=== PATIENT | male | born 1960 | race Caucasian/White ===

== ENCOUNTER 2020-08-18 14:31 | Emergency (ER) | payer BC ==
[2020-08-18 14:40] VITALS: RESP 16; TEMP 97.6
[2020-08-18] MEDS ORDERED: SODIUM CHLORIDE 0.9% 1,000 ML IV STA ×2 (15:02)
--- NOTE | 2020-08-18 15:14 | ED ---
Chest Pain HPI - General Source: patient, RN notes reviewed, old records reviewed Mode of arrival: ambulatory Limitations: no limitations <Rupinder Ladd - Last Filed: 08/18/20 16:19> <Maribell Page - Last Filed: 08/19/20 00:03> - General Chief Complaint: Chest Pain Stated Complaint: Chest Pain Time Seen by Provider: 08/18/20 14:55 - History of Present Illness Initial Comments: 60-year-old male present to return today with complete chest pain this morning with movement of his head and neck and chest wall. He states that he does do an active job. He reports that he told this to urgent care center here for further evaluation. Denies any significant shortness of breath, he is a smoker. Denies any significant history of diabetes hypertension or hyperlipidemia. Patient denies any significant complaints of headache dizziness or lightheadedness. He reports that his pain is reproducible and lifting his arms and lifting his head up.. (Rupinder Ladd) - Related Data Allergies Allergy/AdvReac Type Severity Reaction Status Date / Time peanut Allergy Rash/Hives Verified 08/18/20 14:38 Review of Systems ROS Other: All systems not noted in ROS Statement are negative. <Rupinder Ladd - Last Filed: 08/18/20 16:19> ROS Other: All systems not noted in ROS Statement are negative. <Maribell Page - Last Filed: 08/19/20 00:03> ROS Statement: Those systems with pertinent positive or pertinent negative responses have been documented in the HPI. EKG Findings - EKG Comments: EKG Findings:: EKG performed at 1447 shows sinus rhythm normal EKG. Ventricular rate of 63 bpm. Pulse 64 ms. QRS duration is 84 ms. QT QTc is 420/[address] elevation. <Rupinder Ladd - Last Filed: 08/18/20 16:19> Past Medical History Past Medical History: No Reported History History of Any Multi-Drug Resistant Organisms: None Reported Past Surgical History: Orthopedic Surgery Additional Past Surgical History / Comment(s): right ankle Past Psychological History: No Psychological Hx Reported Smoking Status: Current every day smoker Past Alcohol Use History: Occasional Past Drug Use History: None Reported <Rupinder Ladd - Last Filed: 08/18/20 16:19> General Exam Limitations: no limitations General appearance: alert, in no apparent distress Head exam: Present: atraumatic, normocephalic, normal inspection Eye exam: Present: normal appearance, PERRL, EOMI. Absent: scleral icterus, conjunctival injection, periorbital swelling ENT exam: Present: normal exam, mucous membranes moist Neck exam: Present: normal inspection. Absent: tenderness, meningismus, lymphadenopathy Respiratory exam: Present: normal lung sounds bilaterally. Absent: respiratory distress, wheezes, rales, rhonchi, stridor Cardiovascular Exam: Present: regular rate, normal rhythm, normal heart sounds, other (Tenderness over chest wall palpation over her left right pectoralis muscle and trapezius.). Absent: systolic murmur, diastolic murmur, rubs, gallop, clicks GI/Abdominal exam: Present: soft, normal bowel sounds. Absent: distended, tenderness, guarding, rebound, rigid Extremities exam: Present: normal inspection, full ROM, normal capillary refill. Absent: tenderness, pedal edema, joint swelling, calf tenderness Back exam: Present: normal inspection Neurological exam: Present: alert, oriented X3, CN II-XII intact Psychiatric exam: Present: normal affect, normal mood <Rupinder Ladd - Last Filed: 08/18/20 16:19> - General Exam Comments Initial Comments: 60-year-old male. Alert and oriented. (Rupinder Ladd) Course Vital Signs 08/18/20 08/18/20 08/18/20 14:35 15:40 16:40 Temperature 97.6 F 97.6 F 97.6 F Pulse Rate 57 L 60 60 Respiratory 16 16 16 Rate Blood Pressure 154/96 150/82 142/88 O2 Sat by Pulse 98 98 98 Oximetry 08/18/20 16:43 Temperature 97.6 F Pulse Rate 60 Respiratory 16 Rate Blood Pressure 142/88 O2 Sat by Pulse 98 Oximetry Chest Pain MDM <Rupinder Ladd - Last Filed: 08/18/20 16:19> <Maribell Page - Last Filed: 08/19/20 00:03> - MDM 60-year-old male presents the ER today for evaluation for concern for chest pain virtually right left chest wall and neck with few days. At this time patient's EKG is reviewed and are normal. Patient's labs reviewed including troponin which were unremarkable. Chest x-rays negative for any acute cardiopulmonary process. Patient's pain is reproducible. Inform him of normal lab results he is anxious to be discharged home. I discussed possibility of admission for cardiac observation and Patient is anxious to go home stating he knows this is his muscle feels that he has ruled out anything concerning. Patient advised to follow-up with PCP and cardiology. Discussed strict return parameters. (Rupinder Ladd) I was available for consultation in the emergency department. The history and physical exam were done by the midlevel provider. I was consulted for this patients care. I reviewed the case with the midlevel provider and based on their presentation of the patient, I agree with the assessment, medical decision making and plan of care as documented. Chart was dictated using [employer] dictation software. Attempts were made to correct any dictation errors however some typographical errors may persist. Patient was seen during a national state of emergency due to the Covid-19 pandemic. (Maribell Page) Disposition Is patient prescribed a controlled substance at d/c from ED?: No Time of Disposition: 16:22 <Rupinder Ladd - Last Filed: 08/18/20 16:19> <Maribell Page - Last Filed: 08/19/20 00:03> Clinical Impression: Chest wall pain Disposition: HOME SELF-CARE Condition: Good Instructions (If sedation given, give patient instructions): Costochondritis (ED) Additional Instructions: Take anti-inflammatory medication for pain. There is any shortness of breath worsening chest pain please return to the ER for reevaluation. Referrals: Kash Saucedo MD [Primary Care Provider] - 1-2 days
[2020-08-18 15:27] LABS: Basophils # (A) 0.1 k/uL (0-0.2); Basophils % (A) 1 %; Eosinophils # (A) 0.4 k/uL (0-0.7); Eosinophils % (A) 5 %; HCT 46.6 % (39.0-53.0); Lymphocytes # (A) 2.5 k/uL (1.0-4.8); Lymphocytes % (A) 31 %; MCH 30.4 pg (25.0-35.0); MCHC 32.1 g/dL (31.0-37.0); MCV 94.7 fL (80.0-100.0); Mean Platelet Volume 6.8; Monocytes # (A) 0.6 k/uL (0-1.0); Monocytes % (A) 8 %; Neutrophils # (A) 4.2 k/uL (1.3-7.7); Neutrophils % (A) 52 %; Platelet Count 307 k/uL (150-450); RBC 4.93 m/uL (4.30-5.90); RDW 11.9 % (11.5-15.5)
[2020-08-18 15:37] LABS: ALT 21 U/L (4-49); AST 27 U/L (17-59); African American GFR (CKD) >90 (>60 ml/min/1.73 sqM); Albumin 4.4 g/dL (3.5-5.0); Alkaline Phosphatase 67 U/L (38-126); Anion Gap 6 mmol/L; Blood Urea Nitrogen 18 mg/dL (9-20); Calcium 9.6 mg/dL (8.4-10.2); Carbon Dioxide 23 mmol/L (22-30); Chloride 107 mmol/L (98-107); Glucose 91 mg/dL (74-99); Magnesium 2.3 mg/dL (1.6-2.3); Non-African American GFR(CKD) >90 (>60 ml/min/1.73 sqM); Potassium 4.3 mmol/L (3.5-5.1); Sodium 136 mmol/L (137-145); Total Bilirubin 0.7 mg/dL (0.2-1.3); Total Protein 7.1 g/dL (6.3-8.2)
[2020-08-18 15:42] LABS: Partial Thromboplastin Time 23.5 sec (22.0-30.0); Prothrombin Time 9.9 sec (9.0-12.0)
--- NOTE | 2020-08-18 15:52 | XR ---
EXAMINATION TYPE: XR chest 2V DATE OF EXAM: 08/18/2020 COMPARISON: NONE HISTORY: Chest pain. TECHNIQUE: Frontal and lateral views of the chest are obtained. FINDINGS: There is some mild chronic parenchymal changes bilaterally are felt present without suspic ious focal air space opacity, pleural effusion, or pneumothorax seen. The cardiac silhouette size is within normal limits. There is some multilevel spurring in the mid to lower thoracic spine noted. Ov erlying EKG leads are present. IMPRESSION: No acute cardiopulmonary process.
[2020-08-18 17:11] VITALS: PULSE 60
[2020-08-18 17:12] VITALS: BP 142/88
== END 2020-08-18 16:45 | disposition home or self-care (01) ==
LOC: EC 14:31
DX: R07.89 Other chest pain (principal); F17.200 Nicotine dependence, unspecified, uncomplicated; Z91.010 Allergy to peanuts
CPT/HCPCS: 36415; 71046; 80053; 83735; 83880; 84484; 85025; 85610; 85730; 93005; 96360; 99285